=== PATIENT | female | born 1985 | race Hispanic/Latino ===

== ENCOUNTER 2021-07-02 12:53 | Inpatient (IN) | payer SELFPAY ==
[~2021-07-02] VITALS: Ht 167.6 cm; Wt 88.9 kg
[2021-07-02] MEDS ORDERED: SODIUM CHLORIDE 0.9% 1000ML 1,000 ML IV STA (13:07)
[2021-07-02] MEDS ORDERED: DIPHENHYDRAMINE HCL INJ 50 MG/ML VIAL IV ONE (13:30)
[2021-07-02 13:52] LABS: BASOPHILS % 0.4 % (0.0-1.0); EOSINOPHILS % 0.3 % (0.0-6.0); HEMATOCRIT 33.8 % (34.2-44.1); LYMPHOCYTES # (AUTO) 1.6 (1.0-3.2); LYMPHOCYTES % 16.1 % (18.0-39.1); MEAN CORPUSCULAR HEMOGLOBIN 25.9 pg (28-32); MEAN CORPUSCULAR HGB CONC 32.5 g/dL (31-35); MEAN CORPUSCULAR VOLUME 79.5 fL (81-99); MONOCYTES # (AUTO) 0.7 (0.2-0.8); MONOCYTES % 7.3 % (4.4-11.3); NEUTROPHILS # (AUTO) 7.3 (2.1-6.9); NEUTROPHILS % 75.5 % (38.7-80.0); PLATELET COUNT 321 x10e3/uL (140-360); RED BLOOD COUNT 4.25 x10e6/uL (3.6-5.1); RED CELL DISTRIBUTION WIDTH 15.2 % (11.7-14.4)
[2021-07-02] MEDS ORDERED: HALOPERIDOL LACTATE 5 MG/ML VIAL IM ONE (14:00)
[2021-07-02 14:04] LABS: ALANINE AMINOTRANSFERASE 234 IU/L (0-55); ALBUMIN 4.2 g/dL (3.5-5.0); ALBUMIN/GLOBULIN RATIO 1.2 (0.8-2.0); ALKALINE PHOSPHATASE 68 IU/L (40-150); ANION GAP 16.5 mmol/L (8-16); BLOOD UREA NITROGEN 11 mg/dL (7-26); BUN/CREATININE RATIO 15 (6-25); CARBON DIOXIDE 20 mmol/L (22-29); CHLORIDE 107 mmol/L (98-107); CREATININE, SERUM 0.72 mg/dL (0.57-1.11); EST GLOMERULAR FILTRATION RATE 92 ML/MIN (60-); GLUCOSE 106 mg/dL (74-118); MAGNESIUM 1.9 MG/DL (1.3-2.1); POTASSIUM 3.5 mmol/L (3.5-5.1); SODIUM 140 mmol/L (136-145)
[2021-07-02 14:06] LABS: CLARITY,URINE CLEAR (CLEAR); COLOR,URINE YELLOW (YELLOW)
[2021-07-02 14:07] LABS: KETONES,URINE NEGATIVE (NEGATIVE); LEUKOCYTE ESTERASE ,URINE NEGATIVE (NEGATIVE); NITRITE,URINE NEGATIVE (NEGATIVE); PROTEIN,URINE DIPSTICK NEGATIVE (NEGATIVE); URINE UROBILINOGEN 1 mg/dL (0.2 - 1)
[2021-07-02 14:10] LABS: AMYLASE 43 U/L (25-125); LIPASE 42 U/L (8-78)
[2021-07-02 14:28] LABS: AMPHETAMINES SCREEN,URINE NEGATIVE (NEGATIVE); BENZODIAZEPINES SCREEN,URINE NEGATIVE (NEGATIVE); PHENCYCLIDINE SCREEN,URINE NEGATIVE (NEGATIVE)
[2021-07-02 14:32] LABS: BACTERIA,URINE MANY /HPF; EPITHELIAL CELLS,URINE FEW /LPF; WBC,URINE (MAN) 0-5 /HPF (0-5)
[2021-07-02] MEDS ORDERED: DICYCLOMINE HCL 20 MG/2 ML VIAL IM ONE (14:45)
[2021-07-02] MEDS ORDERED: HYDROMORPHONE 1MG/1ML INJ IV STA (14:56)
[2021-07-02] MEDS ORDERED: PIPERACILLIN/TAZOBACTAM 3.375 GM in SODIUM CHLORIDE 0.9% 50ML 50 ML IV SCH (15:30)
[2021-07-02] MEDS ORDERED: PROMETHAZINE 12.5MG/ NACL 0.9% 12.5 MG/50 ML BAG IV ONE (15:30)
[2021-07-02] MEDS ORDERED: PROMETHAZINE 12.5MG/ NACL 0.9% 12.5 MG/50 ML BAG IV PRN (15:30)
[2021-07-02] MEDS: SODIUM CHLORIDE 0.9% 1000ML 1,000 ML IV SCH (16:11)
[2021-07-02] MEDS: PIPERACILLIN/TAZOBACTAM 3.375 GM in SODIUM CHLORIDE 0.9% 50ML 50 ML IV SCH (16:13)
[2021-07-02 17:00] VITALS: BP 135/76
[2021-07-02 18:06] VITALS: BP 135/76
[2021-07-02 20:12] VITALS: BP 134/78
[2021-07-02 21:18] VITALS: BP 134/78
[2021-07-02 23:35] VITALS: BP 103/60
[2021-07-03] VITALS (8 sets, daily range): BP systolic 107–134; BP diastolic 74–86
[2021-07-03] MEDS: SODIUM CHLORIDE 0.9% 1000ML 1,000 ML IV SCH ×3 (01:37→16:01)
[2021-07-03] MEDS: PIPERACILLIN/TAZOBACTAM 3.375 GM in SODIUM CHLORIDE 0.9% 50ML 50 ML IV SCH ×4 (01:37→17:21)
[2021-07-03 05:35] LABS: BASOPHILS % 0.6 % (0.0-1.0); EOSINOPHILS # (AUTO) 0.1 (0.0-0.4); EOSINOPHILS % 1.6 % (0.0-6.0); HEMATOCRIT 31.7 % (34.2-44.1); HEMOGLOBIN 9.8 g/dL (12.0-16.0); LYMPHOCYTES % 40.1 % (18.0-39.1); MEAN CORPUSCULAR HEMOGLOBIN 25.9 pg (28-32); MEAN CORPUSCULAR HGB CONC 30.9 g/dL (31-35); MEAN CORPUSCULAR VOLUME 83.9 fL (81-99); MONOCYTES # (AUTO) 0.6 (0.2-0.8); MONOCYTES % 11.7 % (4.4-11.3); NEUTROPHILS # (AUTO) 2.2 (2.1-6.9); NEUTROPHILS % 45.8 % (38.7-80.0); PLATELET COUNT 260 x10e3/uL (140-360); RED BLOOD COUNT 3.78 x10e6/uL (3.6-5.1); RED CELL DISTRIBUTION WIDTH 15.4 % (11.7-14.4)
[2021-07-03 06:01] LABS: ALBUMIN 3.3 g/dL (3.5-5.0); ALBUMIN/GLOBULIN RATIO 1.2 (0.8-2.0); ANION GAP 14.3 mmol/L (8-16); CALCIUM 7.9 mg/dL (8.4-10.2); CREATININE, SERUM 0.7 mg/dL (0.57-1.11); POTASSIUM 3.3 mmol/L (3.5-5.1)
[2021-07-03 06:02] LABS: CHOL/HDL RATIO 2.8 (3.0-3.6); MAGNESIUM 1.9 MG/DL (1.3-2.1); PHOSPHORUS 3.4 MG/DL (2.3-4.7)
[2021-07-03 06:23] LABS: THYROID STIMULATING HORMONE 2.037 uIU/mL (0.350-4.940)
[2021-07-03] MEDS: HYDROMORPHONE 1MG/1ML INJ IV PRN ×3 (08:59→20:56)
[2021-07-03] MEDS ORDERED: ONDANSETRON ODT4 MG PO (09:18)
[2021-07-03] MEDS ORDERED: SUCRALFATE1 GM PO (09:18)
[2021-07-03] MEDS ORDERED: DICYCLOMINE HCL10 MG PO (09:18)
[2021-07-03] MEDS ORDERED: TYLENOL EXTRA500 MG PO (09:19)
[2021-07-03] MEDS ORDERED: POTASSIUM CHLORIDE 20MEQ/100ML 100 ML IV ONE (11:00)
[2021-07-03] MEDS: ONDANSETRON HCL INJ 2MG/ML 2ML 2 MG/ML VIAL IV PRN (19:59)
[2021-07-04] VITALS (8 sets, daily range): BP systolic 131–151; BP diastolic 74–89
[2021-07-04] MEDS: PIPERACILLIN/TAZOBACTAM 3.375 GM in SODIUM CHLORIDE 0.9% 50ML 50 ML IV SCH ×5 (00:38→23:30)
[2021-07-04] MEDS: ONDANSETRON HCL INJ 2MG/ML 2ML 2 MG/ML VIAL IV PRN (01:08)
[2021-07-04] MEDS: SODIUM CHLORIDE 0.9% 1000ML 1,000 ML IV SCH ×4 (01:08→23:31)
[2021-07-04] MEDS: HYDROMORPHONE 1MG/1ML INJ IV PRN ×4 (01:09→23:30)
[2021-07-04 10:14] LABS: BASOPHILS % 0.7 % (0.0-1.0); EOSINOPHILS # (AUTO) 0.1 (0.0-0.4); EOSINOPHILS % 1.8 % (0.0-6.0); HEMATOCRIT 32.4 % (34.2-44.1); LYMPHOCYTES # (AUTO) 1.6 (1.0-3.2); LYMPHOCYTES % 28.6 % (18.0-39.1); MEAN CORPUSCULAR HEMOGLOBIN 25.8 pg (28-32); MEAN CORPUSCULAR HGB CONC 30.9 g/dL (31-35); MEAN CORPUSCULAR VOLUME 83.7 fL (81-99); MONOCYTES # (AUTO) 0.4 (0.2-0.8); MONOCYTES % 7.4 % (4.4-11.3); NEUTROPHILS # (AUTO) 3.5 (2.1-6.9); NEUTROPHILS % 61.3 % (38.7-80.0); PLATELET COUNT 284 x10e3/uL (140-360); RED BLOOD COUNT 3.87 x10e6/uL (3.6-5.1); RED CELL DISTRIBUTION WIDTH 15.2 % (11.7-14.4)
[2021-07-04] MEDS ORDERED: POTASSIUM CHLORIDE 20MEQ/100ML 200 ML IV ONE ×2 (10:15→11:30)
[2021-07-04 10:28] LABS: ALBUMIN 3.6 g/dL (3.5-5.0); ALBUMIN/GLOBULIN RATIO 1.2 (0.8-2.0); ANION GAP 16.3 mmol/L (8-16); CALCIUM 8.3 mg/dL (8.4-10.2); CREATININE, SERUM 0.69 mg/dL (0.57-1.11); POTASSIUM 3.3 mmol/L (3.5-5.1)
[2021-07-04] MEDS ORDERED: BUPIVACAINE HCL 0.5% INJ 30 ML VIAL INJ ONE (12:30)
[2021-07-04] MEDS ORDERED: NEOSTIGMINE 1 MG/ML 10ML VIAL ONE (13:00)
[2021-07-04] MEDS ORDERED: DEXAMETHASONE SOD PHOS INJ 4 MG/ML SDV ONE (13:00)
[2021-07-04] MEDS ORDERED: ONDANSETRON HCL INJ 2MG/ML 2ML 2 MG/ML VIAL ONE (13:00)
[2021-07-04] MEDS ORDERED: GLYCOPYRROLATE INJ 0.2 MG/ML VIAL ONE (13:00)
[2021-07-04] MEDS ORDERED: POVIDONE IODINE 0.05% 0.05 % ML PO ONE (13:00)
[2021-07-04] MEDS ORDERED: KETOROLAC TROMETHAMINE 30 MG/ML VIAL ONE (13:00)
[2021-07-04] MEDS ORDERED: ROCURONIUM BROMIDE 10 MG/ML 5ML VIAL IV ONE (13:00)
[2021-07-04] MEDS ORDERED: PROPOFOL IV EMULSION 10 MG/ML 20 ML VIAL ONE (13:00)
[2021-07-04] MEDS ORDERED: LIDOCAINE HCL 2% LOCAL INJ 5 ML SDV VIAL INJ ONE (13:00)
[2021-07-04] MEDS ORDERED: SEVOFLURANE INHAL SOLN 250 ML PEN BTL ONE (13:00)
[2021-07-04] MEDS ORDERED: ONDANSETRON HCL INJ 2MG/ML 2ML 2 MG/ML VIAL IV PRN (13:45)
[2021-07-04] MEDS ORDERED: HYDROCODONE/APAP 5MG-325MG TAB PO PRN (13:45)
[2021-07-04] MEDS ORDERED: FENTANYL CITRATE/PF 100MCG/2 ML INJ ONE ×2 (14:06→17:15)
[2021-07-04] MEDS ORDERED: HYDROMORPHONE 1MG/1ML INJ ONE (14:28)
[2021-07-04] MEDS ORDERED: MIDAZOLAM HCL 2 MG/2 ML VIAL ONE (17:15)
[2021-07-04] MEDS ORDERED: Morphine 10mg syringe 10 MG/ML INJ ONE (17:15)
[2021-07-05] VITALS: BP 114/75
[2021-07-05] MEDS: HYDROMORPHONE 1MG/1ML INJ IV PRN ×2 (03:52→08:45)
[2021-07-05 04:00] VITALS: BP 123/81
[2021-07-05 05:48] LABS: BASOPHILS % 0.1 % (0.0-1.0); EOSINOPHILS % 0.1 % (0.0-6.0); HEMATOCRIT 30.3 % (34.2-44.1); HEMOGLOBIN 9.8 g/dL (12.0-16.0); LYMPHOCYTES # (AUTO) 1.5 (1.0-3.2); LYMPHOCYTES % 18.8 % (18.0-39.1); MEAN CORPUSCULAR HEMOGLOBIN 26.3 pg (28-32); MEAN CORPUSCULAR HGB CONC 32.3 g/dL (31-35); MEAN CORPUSCULAR VOLUME 81.2 fL (81-99); MONOCYTES # (AUTO) 0.7 (0.2-0.8); MONOCYTES % 9.6 % (4.4-11.3); NEUTROPHILS # (AUTO) 5.5 (2.1-6.9); NEUTROPHILS % 70.9 % (38.7-80.0); PLATELET COUNT 272 x10e3/uL (140-360); RED BLOOD COUNT 3.73 x10e6/uL (3.6-5.1); RED CELL DISTRIBUTION WIDTH 14.7 % (11.7-14.4)
[2021-07-05] MEDS: PIPERACILLIN/TAZOBACTAM 3.375 GM in SODIUM CHLORIDE 0.9% 50ML 50 ML IV SCH ×2 (06:00→12:23)
[2021-07-05 06:20] LABS: ALANINE AMINOTRANSFERASE 166 IU/L (0-55); ALBUMIN 3.2 g/dL (3.5-5.0); ALBUMIN/GLOBULIN RATIO 1.1 (0.8-2.0); ALKALINE PHOSPHATASE 67 IU/L (40-150); ANION GAP 13.4 mmol/L (8-16); BLOOD UREA NITROGEN < 5 mg/dL (7-26); CALCIUM 8.2 mg/dL (8.4-10.2); CARBON DIOXIDE 23 mmol/L (22-29); CHLORIDE 105 mmol/L (98-107); CREATININE, SERUM 0.65 mg/dL (0.57-1.11); EST GLOMERULAR FILTRATION RATE 104 ML/MIN (60-); GLUCOSE 79 mg/dL (74-118); POTASSIUM 3.4 mmol/L (3.5-5.1); SODIUM 138 mmol/L (136-145)
[2021-07-05 06:22] LABS: BUN/CREATININE RATIO 8 (6-25)
[2021-07-05 08:36] VITALS: BP 132/92
[2021-07-05] MEDS ORDERED: ACETAMINOPHEN-1 EAC4 PO (09:14)
[2021-07-05] MEDS ORDERED: POTASSIUM CHLORIDE 20MEQ/100ML 100 ML IV ONE (09:15)
[2021-07-05] MEDS: SODIUM CHLORIDE 0.9% 1000ML 1,000 ML IV SCH (09:45)
[2021-07-05] MEDS ORDERED: POTASSIUM CHLORIDE 20 MEQ TAB CR PO ONE (10:00)
[2021-07-05 10:34] VITALS: BP 128/70
[2021-07-05 12:37] VITALS: BP 120/66
[2021-07-06] MEDS ORDERED: PANTOPRAZOLE SOD 40 MG TABEC PO SCH (07:30)
== END 2021-07-05 18:05 | disposition home or self-care (01) | DRG 419 ==
LOC: ER 13:07 → ERHOLD 15:27 → MED/SURG 17:04
PROVIDERS: ADMIT Internal Medicine; ATTEND Internal Medicine
PROC: 0FT44ZZ Resection of Gallbladder, Percutaneous Endoscopic Approach (ICD-10-PCS; principal; 2021-07-04 13:00)
DX: K81.2 Acute cholecystitis with chronic cholecystitis (principal); K82.8 Other specified diseases of gallbladder; E80.6 Other disorders of bilirubin metabolism; K21.9 Gastro-esophageal reflux disease without esophagitis; K29.70 Gastritis, unspecified, without bleeding; E87.6 Hypokalemia; Z20.822 Contact with and (suspected) exposure to COVID-19
CPT/HCPCS: 36415; 74176; 74181; 80053; 80061; 80307; 81001; 82150; 83036; 83690; 83735; 84100; 84443; 84702; 85025; 87086; 88304; 99285; J0500; J1100; J1170; J1200; J1630; J1885; J2001; J2250; J2270; J2405; J2543; J2550; J2710; J3010; J3480; J7030; U0002

== ENCOUNTER 2021-08-05 07:19 | Inpatient (IN) | payer SELFPAY ==
[~2021-08-05] VITALS: Ht 167.6 cm; Wt 88.9 kg
[~2021-08-05 07:19] MED LIST: ACETAMINOPHEN-1 EAC4 PO; DICYCLOMINE HCL10 MG PO; ONDANSETRON ODT4 MG PO; SUCRALFATE1 GM PO; TYLENOL EXTRA500 MG PO
[2021-08-05] MEDS ORDERED: SODIUM CHLORIDE 0.9% 1000ML 1,000 ML IV STA ×3 (07:31→09:22)
[2021-08-05] MEDS ORDERED: ONDANSETRON HCL INJ 2MG/ML 2ML 2 MG/ML VIAL IV STA (07:31)
[2021-08-05] MEDS ORDERED: KETOROLAC TROMETHAMINE 30 MG/ML VIAL IV STA (07:48)
[2021-08-05 08:09] LABS: BASOPHILS % 0.1 % (0.0-1.0); LYMPHOCYTES # (AUTO) 0.8 (1.0-3.2); LYMPHOCYTES % 5.6 % (18.0-39.1); MEAN CORPUSCULAR HEMOGLOBIN 25.5 pg (28-32); MEAN CORPUSCULAR HGB CONC 31.6 g/dL (31-35); MEAN CORPUSCULAR VOLUME 80.7 fL (81-99); MONOCYTES # (AUTO) 0.5 (0.2-0.8); MONOCYTES % 3.4 % (4.4-11.3); NEUTROPHILS # (AUTO) 13.5 (2.1-6.9); NEUTROPHILS % 90.6 % (38.7-80.0); PLATELET COUNT 416 x10e3/uL (140-360); RED BLOOD COUNT 4.71 x10e6/uL (3.6-5.1)
[2021-08-05 08:30] LABS: ALANINE AMINOTRANSFERASE 12 IU/L (0-55); ALBUMIN 4.7 g/dL (3.5-5.0); ALBUMIN/GLOBULIN RATIO 1.3 (0.8-2.0); ALKALINE PHOSPHATASE 73 IU/L (40-150); ANION GAP 20.4 mmol/L (8-16); BLOOD UREA NITROGEN 13 mg/dL (7-26); BUN/CREATININE RATIO 15 (6-25); CALCIUM 9.9 mg/dL (8.4-10.2); CARBON DIOXIDE 18 mmol/L (22-29); CHLORIDE 113 mmol/L (98-107); CREATININE, SERUM 0.84 mg/dL (0.57-1.11); EST GLOMERULAR FILTRATION RATE 77 ML/MIN (60-); GLUCOSE 152 mg/dL (74-118); LIPASE 12 U/L (8-78); MAGNESIUM 1.8 MG/DL (1.3-2.1); POTASSIUM 3.4 mmol/L (3.5-5.1); SODIUM 148 mmol/L (136-145)
[2021-08-05] MEDS ORDERED: PROMETHAZINE 25MG/ NS 50ML (IV) IV ONE (08:30)
[2021-08-05] MEDS ORDERED: DIPHENHYDRAMINE HCL INJ 50 MG/ML VIAL IV ONE ×2 (08:30→11:15)
[2021-08-05 08:56] LABS: CLARITY,URINE CLEAR (CLEAR); COLOR,URINE YELLOW (YELLOW); KETONES,URINE 2+ (NEGATIVE); LEUKOCYTE ESTERASE ,URINE NEGATIVE (NEGATIVE); NITRITE,URINE NEGATIVE (NEGATIVE); PROTEIN,URINE DIPSTICK 2+ (NEGATIVE); URINE UROBILINOGEN 0.2 mg/dL (0.2 - 1)
[2021-08-05] MEDS ORDERED: DICYCLOMINE HCL 20 MG/2 ML VIAL IM ONE (09:00)
[2021-08-05 09:08] LABS: BACTERIA,URINE FEW /HPF; EPITHELIAL CELLS,URINE RARE /LPF; RBC,URINE 0-5 /HPF (0-5)
[2021-08-05 09:13] LABS: AMPHETAMINES SCREEN,URINE NEGATIVE (NEGATIVE); BENZODIAZEPINES SCREEN,URINE NEGATIVE (NEGATIVE); PHENCYCLIDINE SCREEN,URINE NEGATIVE (NEGATIVE)
[2021-08-05] MEDS ORDERED: PIPERACILLIN/TAZOBACTAM 3.375 GM in SODIUM CHLORIDE 0.9% 50ML 50 ML IV ONE (09:30)
[2021-08-05 10:15] LABS: ABG HCO3 14 mmol/L (22-26); ABG PCO2 15 mmHg (35-45); ABG PO2 128 mmHg (80-105); ABG TCO2 15
[2021-08-05 11:06] LABS: CREATINE KINASE MB 0.9 ng/mL (0-5.0)
[2021-08-05] MEDS ORDERED: HALOPERIDOL LACTATE 5 MG/ML VIAL IV ONE (11:15)
[2021-08-05] MEDS ORDERED: HYDROMORPHONE 1MG/1ML INJ IV STA (11:18)
[2021-08-05 11:26] LABS: SALICYLATE < 5.0 mg/dL (0-30)
[2021-08-05] MEDS ORDERED: PROMETHAZINE HCL (IM) 25 MG/ML VIAL IM PRN (11:30)
[2021-08-05] MEDS: SODIUM CHLORIDE 0.9% 1000ML 1,000 ML IV SCH ×2 (12:17→19:45)
[2021-08-05 13:18] VITALS: BP 115/73
[2021-08-05 13:23] VITALS: BP 115/73
[2021-08-05] MEDS: HYDROMORPHONE 1MG/1ML INJ IV PRN ×2 (15:15→19:44)
[2021-08-05] MEDS: ONDANSETRON HCL INJ 2MG/ML 2ML 2 MG/ML VIAL IV PRN ×2 (15:15→19:44)
[2021-08-05 17:04] VITALS: BP 108/70
[2021-08-05] MEDS ORDERED: HYDRALAZINE HCL 20 MG/ML VIAL IV PRN (17:15)
[2021-08-05] MEDS ORDERED: ACETAMINOPHEN 650 MG SUPP PR PRN (17:15)
[2021-08-05] MEDS ORDERED: CEPACOL SORE THROAT LOZENGES PO PRN (17:45)
[2021-08-05] MEDS ORDERED: CEPACOL SORE THROAT LOZENGES PO ONE (17:45)
[2021-08-05 18:26] LABS: CREATINE KINASE MB 1.3 ng/mL (0-5.0)
[2021-08-05 20:42] VITALS: BP 116/81
[2021-08-05 21:00] VITALS: BP 116/81
[2021-08-05] MEDS ORDERED: SODIUM CHLORIDE 0.9% 50ML 50 ML ONE (22:32)
[2021-08-05] MEDS ORDERED: IOPAMIDOL 370 MG/ML 200 ML INFUS..BTL INJ ONE (22:32)
[2021-08-06] VITALS (8 sets, daily range): BP systolic 112–130; BP diastolic 74–91
[2021-08-06] MEDS: HYDROMORPHONE 1MG/1ML INJ IV PRN ×5 (01:00→20:38)
[2021-08-06] MEDS: ONDANSETRON HCL INJ 2MG/ML 2ML 2 MG/ML VIAL IV PRN ×5 (01:00→20:38)
[2021-08-06] MEDS: SODIUM CHLORIDE 0.9% 1000ML 1,000 ML IV SCH ×3 (03:39→20:40)
[2021-08-06 06:30] LABS: MAGNESIUM 1.8 MG/DL (1.3-2.1)
[2021-08-06 06:30] LABS: ALBUMIN 3.3 g/dL (3.5-5.0); ALBUMIN/GLOBULIN RATIO 1.4 (0.8-2.0); ANION GAP 9.1 mmol/L (8-16); CALCIUM 7.7 mg/dL (8.4-10.2); CREATININE, SERUM 0.61 mg/dL (0.57-1.11); POTASSIUM 3.1 mmol/L (3.5-5.1)
[2021-08-06 07:18] LABS: BASOPHILS % 0.4 % (0.0-1.0); EOSINOPHILS % 0.4 % (0.0-6.0); HEMATOCRIT 27.8 % (34.2-44.1); LYMPHOCYTES # (AUTO) 2.5 (1.0-3.2); LYMPHOCYTES % 45.5 % (18.0-39.1); MEAN CORPUSCULAR HEMOGLOBIN 25.5 pg (28-32); MEAN CORPUSCULAR HGB CONC 30.2 g/dL (31-35); MONOCYTES # (AUTO) 0.4 (0.2-0.8); MONOCYTES % 7.5 % (4.4-11.3); NEUTROPHILS # (AUTO) 2.6 (2.1-6.9); RED CELL DISTRIBUTION WIDTH 15.6 % (11.7-14.4)
[2021-08-06 07:23] LABS: HEMOGLOBIN 8.4 g/dL (12.0-16.0); MEAN CORPUSCULAR VOLUME 84.2 fL (81-99); PLATELET COUNT 248 x10e3/uL (140-360)
[2021-08-06] MEDS: FAMOTIDINE 20 MG/2 ML VIAL IV SCH ×2 (08:15→16:33)
[2021-08-06 14:46] LABS: CREATINE KINASE MB 0.9 ng/mL (0-5.0)
[2021-08-06] MEDS ORDERED: POTASSIUM CHLORIDE 20MEQ/100ML 100 ML IV ONE (16:15)
[2021-08-06 17:02] LABS: HEMATOCRIT 29.7 % (34.2-44.1); HEMOGLOBIN 8.9 g/dL (12.0-16.0)
[2021-08-07] VITALS (10 sets, daily range): BP systolic 119–148; BP diastolic 73–108
[2021-08-07] MEDS: HYDROMORPHONE 1MG/1ML INJ IV PRN ×4 (03:50→18:30)
[2021-08-07] MEDS: ONDANSETRON HCL INJ 2MG/ML 2ML 2 MG/ML VIAL IV PRN ×4 (03:50→18:30)
[2021-08-07] MEDS: SODIUM CHLORIDE 0.9% 1000ML 1,000 ML IV SCH ×3 (03:50→21:46)
[2021-08-07 06:09] LABS: BASOPHILS % 0.6 % (0.0-1.0); EOSINOPHILS % 0.4 % (0.0-6.0); HEMATOCRIT 26.6 % (34.2-44.1); HEMOGLOBIN 8.4 g/dL (12.0-16.0); LYMPHOCYTES # (AUTO) 1.6 (1.0-3.2); LYMPHOCYTES % 30.4 % (18.0-39.1); MEAN CORPUSCULAR HEMOGLOBIN 25.7 pg (28-32); MEAN CORPUSCULAR HGB CONC 31.6 g/dL (31-35); MEAN CORPUSCULAR VOLUME 81.3 fL (81-99); MONOCYTES # (AUTO) 0.4 (0.2-0.8); MONOCYTES % 7.4 % (4.4-11.3); NEUTROPHILS # (AUTO) 3.2 (2.1-6.9); NEUTROPHILS % 60.8 % (38.7-80.0); PLATELET COUNT 226 x10e3/uL (140-360); RED BLOOD COUNT 3.27 x10e6/uL (3.6-5.1); RED CELL DISTRIBUTION WIDTH 14.9 % (11.7-14.4)
[2021-08-07 06:43] LABS: CALCIUM 7.5 mg/dL (8.4-10.2); CREATININE, SERUM 0.57 mg/dL (0.57-1.11)
[2021-08-07] MEDS: FAMOTIDINE 20 MG/2 ML VIAL IV SCH (08:23)
[2021-08-07] MEDS ORDERED: POTASSIUM CHLORIDE 20 MEQ TAB CR PO ONE (12:30)
[2021-08-07 15:16] LABS: % IRON SATURATION 8 % (15-50); IRON 28 ug/dL (50-170); TOTAL IRON BINDING CAPACITY 330 ug/dL (261-478); TRANSFERRIN 236 mg/dL (180-382)
[2021-08-07] MEDS ORDERED: SODIUM FERRIC GLUCONATE COMPLX 125 MG in SODIUM CHLORIDE 0.9% 100 ML 100 ML IV SCH (17:00)
[2021-08-07] MEDS: METOCLOPRAMIDE HCL 10 MG/2ML VIAL IV SCH (18:00)
[2021-08-08] VITALS (8 sets, daily range): BP systolic 131–149; BP diastolic 72–107
[2021-08-08] MEDS: METOCLOPRAMIDE HCL 10 MG/2ML VIAL IV SCH ×3 (01:37→12:00)
[2021-08-08] MEDS: HYDROMORPHONE 1MG/1ML INJ IV PRN (02:35)
[2021-08-08] MEDS: SODIUM CHLORIDE 0.9% 1000ML 1,000 ML IV SCH ×2 (02:35→12:01)
[2021-08-08] MEDS: Pantoprazole IV 40 MG in SODIUM CHLORIDE 0.9% 50ML 50 ML IV SCH ×3 (03:46→14:21)
[2021-08-08 06:05] LABS: BASOPHILS % 0.4 % (0.0-1.0); EOSINOPHILS % 0.7 % (0.0-6.0); HEMATOCRIT 26.5 % (34.2-44.1); HEMOGLOBIN 8.3 g/dL (12.0-16.0); LYMPHOCYTES # (AUTO) 1.7 (1.0-3.2); MEAN CORPUSCULAR HEMOGLOBIN 25.5 pg (28-32); MEAN CORPUSCULAR HGB CONC 31.3 g/dL (31-35); MEAN CORPUSCULAR VOLUME 81.3 fL (81-99); MONOCYTES # (AUTO) 0.5 (0.2-0.8); MONOCYTES % 9.7 % (4.4-11.3); NEUTROPHILS # (AUTO) 3.2 (2.1-6.9); NEUTROPHILS % 57.8 % (38.7-80.0); PLATELET COUNT 236 x10e3/uL (140-360); RED BLOOD COUNT 3.26 x10e6/uL (3.6-5.1); RED CELL DISTRIBUTION WIDTH 14.6 % (11.7-14.4)
[2021-08-08 06:54] LABS: ALANINE AMINOTRANSFERASE 23 IU/L (0-55); ALBUMIN 3.3 g/dL (3.5-5.0); ALBUMIN/GLOBULIN RATIO 1.4 (0.8-2.0); ALKALINE PHOSPHATASE 47 IU/L (40-150); BLOOD UREA NITROGEN < 5 mg/dL (7-26); CALCIUM 7.6 mg/dL (8.4-10.2); CARBON DIOXIDE 23 mmol/L (22-29); CHLORIDE 109 mmol/L (98-107); CREATININE, SERUM 0.59 mg/dL (0.57-1.11); EST GLOMERULAR FILTRATION RATE 116 ML/MIN (60-); GLUCOSE 70 mg/dL (74-118); SODIUM 141 mmol/L (136-145)
[2021-08-08 06:56] LABS: BUN/CREATININE RATIO 8 (6-25)
[2021-08-08] MEDS: ONDANSETRON HCL INJ 2MG/ML 2ML 2 MG/ML VIAL IV PRN (07:51)
[2021-08-08] MEDS ORDERED: IRON SUCROSE 100 MG in SODIUM CHLORIDE 0.9% 100 ML 100 ML IV SCH (09:00)
[2021-08-08] MEDS ORDERED: FEOSOL325 MG PO (16:34)
[2021-08-08] MEDS ORDERED: REGLAN10 MG PO (16:35)
[2021-08-08] MEDS ORDERED: METOCLOPRAMIDE HCL 10 MG TAB PO SCH (21:00)
== END 2021-08-08 17:38 | disposition home or self-care (01) | DRG 760 ==
LOC: ER 07:41 → ERHOLD 11:35 → MED/SURG3 12:55 → OBSVTOIN 08-07 14:32
PROVIDERS: ADMIT Internal Medicine; ATTEND Internal Medicine
DX: N94.6 Dysmenorrhea, unspecified (principal); E87.2 Acidosis; E87.3 Alkalosis; E87.0 Hyperosmolality and hypernatremia; E86.0 Dehydration; R11.2 Nausea with vomiting, unspecified; K21.9 Gastro-esophageal reflux disease without esophagitis; F12.188 Cannabis abuse with other cannabis-induced disorder; E87.6 Hypokalemia; D50.9 Iron deficiency anemia, unspecified; D72.829 Elevated white blood cell count, unspecified; R73.9 Hyperglycemia, unspecified; Z20.822 Contact with and (suspected) exposure to COVID-19
CPT/HCPCS: 36415; 36600; 74177; 76830; 76856; 78264; 80048; 80053; 80307; 80320; 80329; 81001; 82550; 82553; 82607; 82746; 82805; 82948; 83540; 83605; 83690; 83735; 84100; 84466; 84484; 84702; 85014; 85018; 85025; 87040; 87086; 93005; 99284; A9541; G0378; J0360; J0500; J1170; J1200; J1756; J1885; J2405; J2543; J2550; J2765; J2916; J3480; J7030; Q9967; U0002

== ENCOUNTER 2021-08-10 12:54 | Emergency (ER) | payer SELFPAY ==
[~2021-08-10] VITALS: Ht 167.6 cm; Wt 88.9 kg
[~2021-08-10 12:54] MED LIST changes: +FEOSOL325 MG PO; +REGLAN10 MG PO
[2021-08-10] MEDS ORDERED: SODIUM CHLORIDE 0.9% 1000ML 1,000 ML IV STA (14:46)
[2021-08-10] MEDS ORDERED: DIPHENHYDRAMINE HCL INJ 50 MG/ML VIAL IV ONE (15:00)
[2021-08-10] MEDS ORDERED: METOCLOPRAMIDE HCL 10 MG/2ML VIAL IV NR (15:00)
[2021-08-10] MEDS ORDERED: DICYCLOMINE HCL 20 MG/2 ML VIAL IM ONE (15:00)
[2021-08-10] MEDS ORDERED: DIPHENHYDRAMINE HCL INJ 50 MG/ML VIAL IV NR (15:15)
[2021-08-10 15:30] LABS: BASOPHILS % 0.4 % (0.0-1.0); EOSINOPHILS % 0.2 % (0.0-6.0); HEMOGLOBIN 11.1 g/dL (12.0-16.0); LYMPHOCYTES % 18.2 % (18.0-39.1); MEAN CORPUSCULAR HEMOGLOBIN 26.1 pg (28-32); MEAN CORPUSCULAR HGB CONC 32.6 g/dL (31-35); MEAN CORPUSCULAR VOLUME 79.8 fL (81-99); MONOCYTES # (AUTO) 0.6 (0.2-0.8); MONOCYTES % 10.2 % (4.4-11.3); NEUTROPHILS # (AUTO) 3.9 (2.1-6.9); NEUTROPHILS % 70.8 % (38.7-80.0); PLATELET COUNT 355 x10e3/uL (140-360); RED BLOOD COUNT 4.26 x10e6/uL (3.6-5.1); RED CELL DISTRIBUTION WIDTH 15.5 % (11.7-14.4)
[2021-08-10 15:56] LABS: ALANINE AMINOTRANSFERASE 24 IU/L (0-55); ALBUMIN 4.3 g/dL (3.5-5.0); ALBUMIN/GLOBULIN RATIO 1.4 (0.8-2.0); ALKALINE PHOSPHATASE 68 IU/L (40-150); ANION GAP 15.7 mmol/L (8-16); BLOOD UREA NITROGEN < 5 mg/dL (7-26); CALCIUM 9.4 mg/dL (8.4-10.2); CARBON DIOXIDE 22 mmol/L (22-29); CHLORIDE 107 mmol/L (98-107); CREATININE, SERUM 0.68 mg/dL (0.57-1.11); EST GLOMERULAR FILTRATION RATE 98 ML/MIN (60-); GLUCOSE 104 mg/dL (74-118); MAGNESIUM 1.5 MG/DL (1.3-2.1); SODIUM 142 mmol/L (136-145)
[2021-08-10 16:01] LABS: BUN/CREATININE RATIO 7 (6-25)
[2021-08-10 16:03] LABS: POTASSIUM 2.7 mmol/L (3.5-5.1)
[2021-08-10] MEDS ORDERED: POTASSIUM CHLORIDE 20 MEQ TAB CR PO NR (16:04)
[2021-08-10 16:37] LABS: CLARITY,URINE CLEAR (CLEAR); COLOR,URINE YELLOW (YELLOW)
[2021-08-10 16:38] LABS: AMPHETAMINES SCREEN,URINE NEGATIVE (NEGATIVE); BENZODIAZEPINES SCREEN,URINE NEGATIVE (NEGATIVE); KETONES,URINE >=160 (NEGATIVE); LEUKOCYTE ESTERASE ,URINE NEGATIVE (NEGATIVE); NITRITE,URINE NEGATIVE (NEGATIVE); PHENCYCLIDINE SCREEN,URINE NEGATIVE (NEGATIVE); PROTEIN,URINE DIPSTICK 1+ (NEGATIVE); URINE UROBILINOGEN 1 mg/dL (0.2 - 1)
[2021-08-10 16:44] LABS: CALCIUM OXALATE CRYSTALS,UR MODERATE (FEW); MUCUS,URINE MANY (RARE)
[2021-08-10 16:45] LABS: BACTERIA,URINE FEW /HPF; EPITHELIAL CELLS,URINE MODERATE /LPF; WBC,URINE (MAN) 0-5 /HPF (0-5)
[2021-08-10 17:40] VITALS: BP 137/87
== END 2021-08-10 17:43 | disposition home or self-care (01) ==
LOC: ER 14:05
DX: R10.32 Left lower quadrant pain (principal); R11.2 Nausea with vomiting, unspecified; K21.9 Gastro-esophageal reflux disease without esophagitis
CPT/HCPCS: 36415; 74022; 80053; 80307; 81001; 83735; 84702; 85025; 87086; 99284; C9113; J0500; J1200; J2765; J7030

== ENCOUNTER 2021-09-01 17:30 | Emergency (ER) | payer SELFPAY ==
[~2021-09-01] VITALS: Ht 167.6 cm; Wt 88.9 kg
[2021-09-01] MEDS ORDERED: ONDANSETRON HCL INJ 2MG/ML 2ML 2 MG/ML VIAL IV STA (17:35)
[2021-09-01 17:44] LABS: BASOPHILS % 0.4 % (0.0-1.0); HEMATOCRIT 37.3 % (34.2-44.1); HEMOGLOBIN 11.7 g/dL (12.0-16.0); LYMPHOCYTES # (AUTO) 0.9 (1.0-3.2); LYMPHOCYTES % 11.3 % (18.0-39.1); MEAN CORPUSCULAR HEMOGLOBIN 26.2 pg (28-32); MEAN CORPUSCULAR HGB CONC 31.4 g/dL (31-35); MEAN CORPUSCULAR VOLUME 83.4 fL (81-99); MONOCYTES # (AUTO) 0.3 (0.2-0.8); MONOCYTES % 3.8 % (4.4-11.3); PLATELET COUNT 347 x10e3/uL (140-360); RED BLOOD COUNT 4.47 x10e6/uL (3.6-5.1); RED CELL DISTRIBUTION WIDTH 15.8 % (11.7-14.4)
[2021-09-01] MEDS ORDERED: HALOPERIDOL LACTATE 5 MG/ML VIAL IM PRN (17:45)
[2021-09-01] MEDS ORDERED: SODIUM CHLORIDE 0.9% 1000ML 1,000 ML IV SCH (17:45)
[2021-09-01] MEDS ORDERED: KETOROLAC TROMETHAMINE 30 MG/ML VIAL IV PRN (17:45)
[2021-09-01] MEDS ORDERED: DIPHENHYDRAMINE HCL INJ 50 MG/ML VIAL IV PRN (17:45)
[2021-09-01] MEDS ORDERED: HALOPERIDOL LACTATE 5 MG/ML VIAL ONE (17:49)
[2021-09-01] MEDS ORDERED: DIPHENHYDRAMINE HCL INJ 50 MG/ML VIAL ONE (17:50)
[2021-09-01] MEDS ORDERED: SODIUM CHLORIDE 0.9% 250ML 250 ML ONE (17:50)
[2021-09-01 18:03] LABS: ALBUMIN 4.5 g/dL (3.5-5.0); ALBUMIN/GLOBULIN RATIO 1.3 (0.8-2.0); ANION GAP 19.4 mmol/L (8-16); CALCIUM 10.3 mg/dL (8.4-10.2); CREATININE, SERUM 0.84 mg/dL (0.57-1.11); POTASSIUM 3.4 mmol/L (3.5-5.1)
[2021-09-01] MEDS ORDERED: IOPAMIDOL 370 MG/ML 200 ML INFUS..BTL INJ ONE (19:04)
[2021-09-01] MEDS ORDERED: SODIUM CHLORIDE 0.9% 50ML 0 ML ONE (19:04)
== END 2021-09-01 20:00 | disposition home or self-care (01) ==
LOC: ER 17:34
DX: R10.30 Lower abdominal pain, unspecified (principal); R11.2 Nausea with vomiting, unspecified; K21.9 Gastro-esophageal reflux disease without esophagitis
CPT/HCPCS: 36415; 80053; 84702; 85025; 99285; J1200; J1630; J7050; Q9967

== ENCOUNTER 2021-09-06 07:26 | Emergency (ER) | payer SELFPAY ==
[~2021-09-06] VITALS: Ht 167.6 cm; Wt 88.9 kg
[2021-09-06] MEDS ORDERED: FAMOTIDINE 20 MG TAB PO ONE (07:45)
[2021-09-06 08:02] LABS: AMPHETAMINES SCREEN,URINE NEGATIVE (NEGATIVE); PHENCYCLIDINE SCREEN,URINE NEGATIVE (NEGATIVE)
[2021-09-06 08:03] LABS: BENZODIAZEPINES SCREEN,URINE NEGATIVE (NEGATIVE)
[2021-09-06] MEDS ORDERED: HALOPERIDOL LACTATE 5 MG/ML VIAL IM ONE (08:15)
[2021-09-06] MEDS ORDERED: HALOPERIDOL1 MG PO (08:38)
[2021-09-06] MEDS ORDERED: FAMOTIDINE20 MG PO (08:40)
== END 2021-09-06 08:46 | disposition home or self-care (01) ==
LOC: ER 07:37
DX: R11.2 Nausea with vomiting, unspecified (principal); R10.9 Unspecified abdominal pain; F12.10 Cannabis abuse, uncomplicated; K21.9 Gastro-esophageal reflux disease without esophagitis; F17.210 Nicotine dependence, cigarettes, uncomplicated
CPT/HCPCS: 80307; 81025; 99283; J1630

== ENCOUNTER 2021-12-14 07:09 | Emergency (ER) | payer SELFPAY ==
[~2021-12-14] VITALS: Ht 167.6 cm; Wt 88.9 kg
[~2021-12-14 07:09] MED LIST changes: +FAMOTIDINE20 MG PO; +HALOPERIDOL1 MG PO
[2021-12-14] MEDS ORDERED: SODIUM CHLORIDE 0.9% 1000ML 1,000 ML IV STA (07:15)
[2021-12-14] MEDS ORDERED: HALOPERIDOL LACTATE 5 MG/ML VIAL IV ONE ×2 (07:15→07:45)
[2021-12-14 07:29] LABS: BASOPHILS % 0.2 % (0.0-1.0); HEMATOCRIT 38.3 % (34.2-44.1); HEMOGLOBIN 12.8 g/dL (12.0-16.0); LYMPHOCYTES # (AUTO) 1.1 (1.0-3.2); LYMPHOCYTES % 7.6 % (18.0-39.1); MEAN CORPUSCULAR HEMOGLOBIN 27.1 pg (28-32); MEAN CORPUSCULAR HGB CONC 33.4 g/dL (31-35); MONOCYTES # (AUTO) 0.5 (0.2-0.8); MONOCYTES % 3.4 % (4.4-11.3); NEUTROPHILS # (AUTO) 13.3 (2.1-6.9); NEUTROPHILS % 88.4 % (38.7-80.0); PLATELET COUNT 363 x10e3/uL (140-360); RED BLOOD COUNT 4.73 x10e6/uL (3.6-5.1); RED CELL DISTRIBUTION WIDTH 13.2 % (11.7-14.4)
[2021-12-14 07:46] LABS: ALBUMIN 4.8 g/dL (3.5-5.0); ALBUMIN/GLOBULIN RATIO 1.2 (0.8-2.0); ANION GAP 19.5 mmol/L (8-16); CALCIUM 10.3 mg/dL (8.4-10.2); CREATININE, SERUM 0.83 mg/dL (0.57-1.11); POTASSIUM 3.5 mmol/L (3.5-5.1)
[2021-12-14 08:18] LABS: AMPHETAMINES SCREEN,URINE NEGATIVE (NEGATIVE); BENZODIAZEPINES SCREEN,URINE NEGATIVE (NEGATIVE); CLARITY,URINE CLEAR (CLEAR); COLOR,URINE YELLOW (YELLOW); EPITHELIAL CELLS,URINE FEW /LPF; KETONES,URINE >=160 (NEGATIVE); LEUKOCYTE ESTERASE ,URINE NEGATIVE (NEGATIVE); MUCUS,URINE FEW (RARE); NITRITE,URINE NEGATIVE (NEGATIVE); PHENCYCLIDINE SCREEN,URINE NEGATIVE (NEGATIVE); PROTEIN,URINE DIPSTICK 2+ (NEGATIVE); URINE UROBILINOGEN 0.2 mg/dL (0.2 - 1); WBC,URINE (MAN) 0-5 /HPF (0-5)
== END 2021-12-14 08:45 | disposition home or self-care (01) ==
LOC: ER 07:26
DX: R10.33 Periumbilical pain (principal); R11.2 Nausea with vomiting, unspecified; F12.10 Cannabis abuse, uncomplicated; K21.9 Gastro-esophageal reflux disease without esophagitis
CPT/HCPCS: 36415; 74019; 80053; 80307; 81001; 83690; 84702; 85025; 99284; J1630; J7030